=== PATIENT | male | born 1980 | race Caucasian/White ===

== ENCOUNTER 2020-10-11 05:51 | Inpatient (IN) | payer OTHER ==
[2020-10-11 06:32] LABS: EOS % 0.6 % (0-4.5); HEMATOCRIT 34.1 % (35.4-49); HEMOGLOBIN 11.4 GM/dL (11.7-16.9); LYMPH % 33.9 % (8-40); MCH 29.8 pg (25.7-33.7); MCHC 33.4 g/dl (32.0-35.9); MEAN CELL VOLUME 89.4 fl (80-96); MEAN PLT VOLUME 7.1 fl (7.5-11.1); MONO % 8.8 % (3.8-10.2); NEUT % 54.7 % (42.8-82.8); PLATELET COUNT 358 K/MM3 (134-434); RBC 3.82 M/mm3 (4.00-5.60); RDW 20.6 % (11.9-15.9); WHITE BLOOD COUNT 5.8 K/mm3 (4.0-10.0)
[2020-10-11 06:59] LABS: CHLORIDE 106 mmol/L (98-107); SODIUM 143 mmol/L (136-145)
[2020-10-11 07:01] LABS: CALCIUM 8.2 mg/dL (8.5-10.1)
[2020-10-11 07:02] LABS: ALBUMIN 3.6 g/dl (3.4-5.0); ANION GAP 9 MMOL/L (8-16); BLOOD UREA NITROGEN 6.3 mg/dL (7-18); CO2 28 mmol/L (21-32); GLUCOSE,RANDOM 146 mg/dL (74-106); LIPASE 190 U/L (73-393)
[2020-10-11 07:04] LABS: SGOT/AST 58 U/L (15-37); SGPT/ALT 43 U/L (13-61)
[2020-10-11 07:05] LABS: CREATININE 0.8 mg/dL (0.55-1.3)
[2020-10-11 07:06] LABS: BILIRUBIN,TOTAL 0.4 mg/dL (0.2-1); TOT PROT 7.7 g/dl (6.4-8.2)
[2020-10-11 07:07] LABS: ALK PHOS 176 U/L (45-117)
[2020-10-11 07:38] LABS: COCAINE, UR NEGATIVE ng/ml (CUTOFF=300); METHADONE, UR NEGATIVE ng/ml (CUTOFF=300); URINE BARBITURATES NEGATIVE ng/ml (CUTOFF=200)
[2020-10-11 07:39] LABS: OPIATES, URI NEGATIVE ng/ml (CUTOFF=300); PHENCYCLIDINE,URINE NEGATIVE ng/ml (CUTOFF=25); URINE AMPHETAMINES NEGATIVE ng/ml (CUTOFF=500)
[2020-10-11 08:29] LABS: PH,URINE 7.5 (5.0-8.0); URINE APPEARANCE CLEAR; URINE BILIRUBIN NEGATIVE (NEGATIVE); URINE COLOR YELLOW; URINE GLUCOSE (UA) NEGATIVE (NEGATIVE); URINE KETONE NEGATIVE (NEGATIVE); URINE LEUK ESTERASE NEGATIVE (NEGATIVE); URINE NITRITE NEGATIVE (NEGATIVE); URINE PROTEIN NEGATIVE (NEGATIVE); URINE UROBILINOGEN 0.2 mg/dL (0.2-1.0)
[2020-10-11 08:56] LABS: URINE BENZODIAZEPINES POSITIVE ng/ml (CUTOFF=200)
[2020-10-11] MEDS ORDERED: POTASSIUM CHLORIDE ORAL LIQUID 20 MEQ/15 ML PO ONE (08:58)
[2020-10-11] MEDS ORDERED: POTASSIUM CHLORIDE ORAL LIQUID 20 MEQ/15 ML ONE (09:05)
[2020-10-11 09:11] LABS: ANISOCYTOSIS 1+; MACROCYTOSIS 0; PLATELET ESTIMATE NORMAL
[2020-10-11] MEDS ORDERED: FAMOTIDINE 20 MG/50 ML IVPB 20 MG/50 ML MG IVPB ONE ×3 (09:31→15:10)
[2020-10-11] MEDS ORDERED: ONDANSETRON 4 MG/2 ML VIAL IVPUSH ONE (09:31)
[2020-10-11] MEDS ORDERED: ONDANSETRON 4 MG/2 ML VIAL ONE (09:38)
[2020-10-11] MEDS: SUCRALFATE 1 GM TABLET (FP) PO SCH ×2 (09:52→22:22)
[2020-10-11] MEDS ORDERED: CEFTRIAXONE 1,000 MG in DEXTROSE 5%-WATER - 50 ML IVPB ONE (12:16)
[2020-10-11] MEDS ORDERED: cefTRIAXone SODIUM 1 GM VIAL ONE (12:20)
[2020-10-11] MEDS ORDERED: ACETAMINOPHEN 1000 MG/100 ML BAG IVPB ONE (13:58)
[2020-10-11] MEDS ORDERED: ACETAMINOPHEN INJECTION 100 ML IVPB ONE (14:16)
[2020-10-11] MEDS ORDERED: KETOROLAC TROMETHAMINE 15 MG/ML VIAL IVPUSH ONE (14:18)
[2020-10-11] MEDS ORDERED: KETOROLAC TROMETHAMINE 15 MG/ML VIAL ONE (14:31)
[2020-10-11] MEDS ORDERED: LACTATED RINGERS SOLUTION 1000 ML INFUS.BAG IV ONE (14:48)
[2020-10-11] MEDS ORDERED: LORazepam 2 MG/ML SDV VIAL IVPUSH ONE (15:10)
[2020-10-11] MEDS ORDERED: FAMOTIDINE 20 MG TABLET ONE (15:55)
[2020-10-11] MEDS ORDERED: LIDOCAINE 5% TOPICAL PATCH ONE (16:42)
[2020-10-11] MEDS ORDERED: LIDOCAINE 5% TOPICAL PATCH TP ONE (16:42)
[2020-10-11] MEDS: D5-1/2NS+10 MEQ KCL - 10 MEQ/1,000 ML INFUS.BAG IV SCH (16:45)
[2020-10-11] MEDS ORDERED: LORazepam 1 MG TABLET ONE ×3 (16:46→22:11)
[2020-10-11] MEDS: LORazepam 1 MG TABLET PO SCH ×2 (16:46→22:22)
[2020-10-11] MEDS: AMPICILLIN NA/SULBACTAM NA 3 GM in SODIUM CHLORIDE 100 ML IVPB SCH (18:12)
[2020-10-11] MEDS ORDERED: ONDANSETRON *ODT* 4 MG TABLET ONE (20:05)
[2020-10-11] MEDS ORDERED: ACETAMINOPHEN 325 MG TABLET (FP) ONE (20:05)
[2020-10-11] MEDS: LORazepam 1 MG TABLET PO PRN (20:08)
[2020-10-11] MEDS: ACETAMINOPHEN 325 MG TABLET (FP) PO PRN (20:09)
[2020-10-11] MEDS: ONDANSETRON 4 MG/2 ML VIAL IVPUSH PRN (20:09)
[2020-10-11] MEDS ORDERED: SUCRALFATE 1 GM TABLET (FP) ONE (22:10)
[2020-10-11] MEDS: FAMOTIDINE 20 MG/50 ML IVPB 20 MG/50 ML MG IVPB SCH (22:22)
[2020-10-12] MEDS ORDERED: LORazepam 1 MG TABLET ONE (04:04)
[2020-10-12] MEDS: LORazepam 1 MG TABLET PO SCH ×4 (04:08→22:58)
[2020-10-12] MEDS ORDERED: ONDANSETRON 4 MG/2 ML VIAL ONE (04:13)
[2020-10-12] MEDS: ONDANSETRON 4 MG/2 ML VIAL IVPUSH PRN ×2 (04:18→17:40)
[2020-10-12] MEDS: AMPICILLIN NA/SULBACTAM NA 3 GM in SODIUM CHLORIDE 100 ML IVPB SCH ×4 (04:34→21:30)
[2020-10-12 07:40] LABS: BASO % 2.8 % (0-2.0); EOS % 0.9 % (0-4.5); HEMATOCRIT 34.5 % (35.4-49); HEMOGLOBIN 11.4 GM/dL (11.7-16.9); MCH 30.1 pg (25.7-33.7); MCHC 33.1 g/dl (32.0-35.9); MEAN CELL VOLUME 90.8 fl (80-96); MEAN PLT VOLUME 7.8 fl (7.5-11.1); MONO % 7.6 % (3.8-10.2); NEUT % 70.7 % (42.8-82.8); PLATELET COUNT 322 K/MM3 (134-434); WHITE BLOOD COUNT 5.9 K/mm3 (4.0-10.0)
[2020-10-12 08:00] LABS: ALBUMIN 3.7 g/dl (3.4-5.0); BLOOD UREA NITROGEN 6.4 mg/dL (7-18); CALCIUM 8.7 mg/dL (8.5-10.1); MAGNESIUM 1.7 mg/dL (1.8-2.4)
[2020-10-12 08:04] LABS: CREATININE 0.8 mg/dL (0.55-1.3)
[2020-10-12 08:05] LABS: BILIRUBIN,TOTAL 1.4 mg/dL (0.2-1)
[2020-10-12] MEDS ORDERED: MAGNESIUM OXIDE 400 MG TABLET (FP) PO ONE (08:28)
[2020-10-12] MEDS ORDERED: LORazepam 2 MG/ML SDV VIAL ONE (08:46)
[2020-10-12] MEDS: LORazepam 1 MG TABLET PO PRN (08:48)
[2020-10-12] MEDS ORDERED: TUBERCULIN PPD 5 TU/0.1ML SYRINGE (IN PATIENT USE ONLY) ID ONE (09:20)
[2020-10-12] MEDS: SUCRALFATE 1 GM TABLET (FP) PO SCH ×2 (09:22→21:48)
[2020-10-12] MEDS ORDERED: MAGNESIUM OXIDE 400 MG TABLET (FP) ONE (09:22)
[2020-10-12] MEDS ORDERED: SUCRALFATE 1 GM TABLET (FP) ONE (09:22)
[2020-10-12] MEDS: FOLIC ACID 1 MG TABLET (FP) PO SCH (09:28)
[2020-10-12] MEDS ORDERED: THIAMINE HCL 100 MG TABLET (FP) ONE (09:28)
[2020-10-12] MEDS ORDERED: FOLIC ACID 1 MG TABLET (FP) ONE (09:28)
[2020-10-12] MEDS ORDERED: FOLIC ACID INJECTION - 1 MG, THIAMINE HCL 100 MG, MULTIVIT INJECTION ADULT 10 ML in SOD... IVPB ONE (09:44)
[2020-10-12] MEDS ORDERED: morphine CARPU-JECT 4 MG/1 ML DISP.SYRIN IVPUSH PRN (09:45)
[2020-10-12] MEDS ORDERED: THIAMINE HCL 100 MG TABLET (FP) PO SCH (10:00)
[2020-10-12] MEDS: FAMOTIDINE 20 MG/50 ML IVPB 20 MG/50 ML MG IVPB SCH ×2 (11:13→21:48)
[2020-10-12] MEDS: D5-1/2NS+10 MEQ KCL - 10 MEQ/1,000 ML INFUS.BAG IV SCH ×2 (17:42→18:43)
[2020-10-13] MEDS: AMPICILLIN NA/SULBACTAM NA 3 GM in SODIUM CHLORIDE 100 ML IVPB SCH ×4 (02:20→17:20)
[2020-10-13] MEDS: LORazepam 1 MG TABLET PO SCH ×4 (04:58→22:35)
[2020-10-13 08:31] LABS: BASO % 2.8 % (0-2.0); EOS % 6.1 % (0-4.5); HEMATOCRIT 33.6 % (35.4-49); LYMPH % 21.2 % (8-40); MCHC 32.8 g/dl (32.0-35.9); MEAN CELL VOLUME 91.5 fl (80-96); MEAN PLT VOLUME 8.6 fl (7.5-11.1); MONO % 9.3 % (3.8-10.2); NEUT % 60.6 % (42.8-82.8); PLATELET COUNT 283 K/MM3 (134-434); RBC 3.67 M/mm3 (4.00-5.60); RDW 20.3 % (11.9-15.9); WHITE BLOOD COUNT 3.9 K/mm3 (4.0-10.0)
[2020-10-13 08:48] LABS: CALCIUM 8.7 mg/dL (8.5-10.1)
[2020-10-13 08:49] LABS: ALBUMIN 3.4 g/dl (3.4-5.0); MAGNESIUM 2.2 mg/dL (1.8-2.4)
[2020-10-13 08:52] LABS: BILIRUBIN,DIRECT 0.3 mg/dL (0.0-0.2); CREATININE 0.7 mg/dL (0.55-1.3); PHOSPHOROUS 2.8 mg/dL (2.5-4.9)
[2020-10-13 08:53] LABS: BILIRUBIN,TOTAL 0.9 mg/dL (0.2-1); TOT PROT 7.3 g/dl (6.4-8.2)
[2020-10-13] MEDS: SUCRALFATE 1 GM TABLET (FP) PO SCH ×2 (09:20→22:35)
[2020-10-13] MEDS: FOLIC ACID 1 MG TABLET (FP) PO SCH (09:21)
[2020-10-13] MEDS: FAMOTIDINE 20 MG/50 ML IVPB 20 MG/50 ML MG IVPB SCH ×2 (09:21→21:43)
[2020-10-13] MEDS: THIAMINE HCL 100 MG TABLET (FP) PO SCH (09:21)
[2020-10-13] MEDS: MULTIVITAMINS (DAILY MVI) TABLET (FP) PO SCH (09:21)
[2020-10-13] MEDS ORDERED: POTASSIUM CHLORIDE TABS 20 MEQ TABLET.ER (FP) PO ONE (11:22)
[2020-10-13] MEDS: D5-1/2NS+10 MEQ KCL - 10 MEQ/1,000 ML INFUS.BAG IV SCH (17:20)
[2020-10-13] MEDS: ENOXAPARIN NA (PORCINE) 40 MG/0.4 ML DISP.SYRIN SQ SCH (18:32)
[2020-10-13] MEDS: ONDANSETRON 4 MG/2 ML VIAL IVPUSH PRN (19:34)
[2020-10-14] MEDS ORDERED: LORazepam 0.5 MG TABLET PO PRN
[2020-10-14] MEDS ORDERED: LORazepam 2 MG/ML SDV VIAL IVPUSH PRN (00:22)
[2020-10-14] MEDS: AMPICILLIN NA/SULBACTAM NA 3 GM in SODIUM CHLORIDE 100 ML IVPB SCH ×2 (02:46→10:47)
[2020-10-14] MEDS: LORazepam 0.5 MG TABLET PO SCH ×3 (05:10→17:38)
[2020-10-14] MEDS: D5-1/2NS+10 MEQ KCL - 10 MEQ/1,000 ML INFUS.BAG IV SCH ×2 (05:12→19:42)
[2020-10-14 08:55] LABS: BASO % 3.2 % (0-2.0); EOS % 7.1 % (0-4.5); HEMATOCRIT 33.2 % (35.4-49); HEMOGLOBIN 10.9 GM/dL (11.7-16.9); LYMPH % 33.4 % (8-40); MCH 30.3 pg (25.7-33.7); MCHC 32.7 g/dl (32.0-35.9); MEAN CELL VOLUME 92.7 fl (80-96); MEAN PLT VOLUME 8.7 fl (7.5-11.1); NEUT % 44.3 % (42.8-82.8); PLATELET COUNT 248 K/MM3 (134-434); RBC 3.58 M/mm3 (4.00-5.60); RDW 20.1 % (11.9-15.9)
[2020-10-14 09:02] LABS: ALBUMIN 3.3 g/dl (3.4-5.0); CALCIUM 8.5 mg/dL (8.5-10.1)
[2020-10-14 09:05] LABS: CREATININE 0.8 mg/dL (0.55-1.3)
[2020-10-14 09:06] LABS: PHOSPHOROUS 3.4 mg/dL (2.5-4.9)
[2020-10-14 09:07] LABS: BILIRUBIN,TOTAL 0.8 mg/dL (0.2-1); TOT PROT 7.3 g/dl (6.4-8.2)
[2020-10-14] MEDS: CYANOCOBALAMIN (VITAMIN B-12) 100 MCG TABLET PO SCH (10:45)
[2020-10-14] MEDS: SUCRALFATE 1 GM TABLET (FP) PO SCH ×2 (10:45→21:46)
[2020-10-14] MEDS: THIAMINE HCL 100 MG TABLET (FP) PO SCH (10:45)
[2020-10-14] MEDS: ENOXAPARIN NA (PORCINE) 40 MG/0.4 ML DISP.SYRIN SQ SCH (10:46)
[2020-10-14] MEDS: FOLIC ACID 1 MG TABLET (FP) PO SCH (10:46)
[2020-10-14] MEDS: MULTIVITAMINS (DAILY MVI) TABLET (FP) PO SCH (12:54)
[2020-10-14] MEDS: FAMOTIDINE 20 MG/50 ML IVPB 20 MG/50 ML MG IVPB SCH ×2 (12:55→21:38)
[2020-10-14] MEDS: AMOX TR/POT CLAV 875MG/125MG TABLETS (FP) PO SCH (17:38)
[2020-10-14] MEDS: ONDANSETRON 4 MG/2 ML VIAL IVPUSH PRN (19:50)
[2020-10-15] MEDS: LORazepam 0.5 MG TABLET PO SCH (01:15)
[2020-10-15] MEDS ORDERED: LORazepam 0.5 MG TABLET PO ONE (05:00)
[2020-10-15 09:47] LABS: HIV INTERPRETATION NEGATIVE (NEGATIVE)
[2020-10-15] MEDS: MULTIVITAMINS (DAILY MVI) TABLET (FP) PO SCH (10:15)
[2020-10-15] MEDS: FOLIC ACID 1 MG TABLET (FP) PO SCH (10:15)
[2020-10-15] MEDS: CYANOCOBALAMIN (VITAMIN B-12) 100 MCG TABLET PO SCH (10:15)
[2020-10-15] MEDS: FAMOTIDINE 20 MG/50 ML IVPB 20 MG/50 ML MG IVPB SCH ×2 (10:15→21:09)
[2020-10-15] MEDS: ENOXAPARIN NA (PORCINE) 40 MG/0.4 ML DISP.SYRIN SQ SCH (10:15)
[2020-10-15] MEDS: THIAMINE HCL 100 MG TABLET (FP) PO SCH (10:15)
[2020-10-15] MEDS: SUCRALFATE 1 GM TABLET (FP) PO SCH ×2 (10:15→21:09)
[2020-10-15] MEDS: AMOX TR/POT CLAV 875MG/125MG TABLETS (FP) PO SCH ×2 (10:15→17:49)
[2020-10-15] MEDS: ACETAMINOPHEN 325 MG TABLET (FP) PO PRN (21:09)
[2020-10-16] MEDS: ACETAMINOPHEN 325 MG TABLET (FP) PO PRN (06:36)
[2020-10-16 09:09] LABS: BASO % 2.7 % (0-2.0); EOS % 5.4 % (0-4.5); HEMATOCRIT 36.5 % (35.4-49); HEMOGLOBIN 11.7 GM/dL (11.7-16.9); LYMPH % 26.2 % (8-40); MCH 29.8 pg (25.7-33.7); MEAN CELL VOLUME 93.3 fl (80-96); MONO % 14.7 % (3.8-10.2); PLATELET COUNT 248 K/MM3 (134-434); RBC 3.91 M/mm3 (4.00-5.60); RDW 20.4 % (11.9-15.9); WHITE BLOOD COUNT 4.3 K/mm3 (4.0-10.0)
[2020-10-16 09:26] LABS: CALCIUM 8.9 mg/dL (8.5-10.1)
[2020-10-16 09:27] LABS: ALBUMIN 3.5 g/dl (3.4-5.0); BLOOD UREA NITROGEN 6.1 mg/dL (7-18); MAGNESIUM 2.3 mg/dL (1.8-2.4)
[2020-10-16 09:30] LABS: CREATININE 0.9 mg/dL (0.55-1.3); PHOSPHOROUS 4.2 mg/dL (2.5-4.9)
[2020-10-16 09:32] LABS: BILIRUBIN,TOTAL 0.6 mg/dL (0.2-1); TOT PROT 7.6 g/dl (6.4-8.2)
[2020-10-16] MEDS: FOLIC ACID 1 MG TABLET (FP) PO SCH (10:04)
[2020-10-16] MEDS: THIAMINE HCL 100 MG TABLET (FP) PO SCH (10:04)
[2020-10-16] MEDS: FAMOTIDINE 20 MG/50 ML IVPB 20 MG/50 ML MG IVPB SCH ×2 (10:04→22:18)
[2020-10-16] MEDS: AMOX TR/POT CLAV 875MG/125MG TABLETS (FP) PO SCH (10:04)
[2020-10-16] MEDS: ENOXAPARIN NA (PORCINE) 40 MG/0.4 ML DISP.SYRIN SQ SCH (10:04)
[2020-10-16] MEDS: SUCRALFATE 1 GM TABLET (FP) PO SCH ×2 (10:05→22:17)
[2020-10-16] MEDS: MULTIVITAMINS (DAILY MVI) TABLET (FP) PO SCH (10:05)
[2020-10-16] MEDS: CYANOCOBALAMIN (VITAMIN B-12) 100 MCG TABLET PO SCH (10:06)
[2020-10-17] MEDS: MELATONIN 5 MG TABLETS PO PRN ×2 (00:45→21:56)
[2020-10-17 08:37] LABS: HEMATOCRIT 35.1 % (35.4-49); HEMOGLOBIN 11.4 GM/dL (11.7-16.9); MCH 30.4 pg (25.7-33.7); MCHC 32.5 g/dl (32.0-35.9); MEAN CELL VOLUME 93.4 fl (80-96); PLATELET COUNT 210 K/MM3 (134-434); RBC 3.76 M/mm3 (4.00-5.60); RDW 21.1 % (11.9-15.9); WHITE BLOOD COUNT 5.2 K/mm3 (4.0-10.0)
[2020-10-17 08:52] LABS: ALBUMIN 3.6 g/dl (3.4-5.0)
[2020-10-17 08:53] LABS: BLOOD UREA NITROGEN 9.6 mg/dL (7-18)
[2020-10-17 08:54] LABS: CALCIUM 8.8 mg/dL (8.5-10.1); MAGNESIUM 2.2 mg/dL (1.8-2.4)
[2020-10-17 08:58] LABS: BILIRUBIN,TOTAL 0.6 mg/dL (0.2-1); CREATININE 0.9 mg/dL (0.55-1.3); PHOSPHOROUS 3.9 mg/dL (2.5-4.9); TOT PROT 7.5 g/dl (6.4-8.2)
[2020-10-17] MEDS: THIAMINE HCL 100 MG TABLET (FP) PO SCH (09:13)
[2020-10-17] MEDS: FOLIC ACID 1 MG TABLET (FP) PO SCH (09:13)
[2020-10-17] MEDS: MULTIVITAMINS (DAILY MVI) TABLET (FP) PO SCH (09:13)
[2020-10-17] MEDS: ENOXAPARIN NA (PORCINE) 40 MG/0.4 ML DISP.SYRIN SQ SCH (09:13)
[2020-10-17] MEDS: SUCRALFATE 1 GM TABLET (FP) PO SCH ×2 (09:55→21:56)
[2020-10-17] MEDS: CYANOCOBALAMIN (VITAMIN B-12) 100 MCG TABLET PO SCH (09:55)
[2020-10-17] MEDS: FAMOTIDINE 20 MG/50 ML IVPB 20 MG/50 ML MG IVPB SCH ×2 (10:10→21:56)
[2020-10-17] MEDS: ACETAMINOPHEN 325 MG TABLET (FP) PO PRN (22:51)
[2020-10-18] MEDS: ENOXAPARIN NA (PORCINE) 40 MG/0.4 ML DISP.SYRIN SQ SCH (10:49)
[2020-10-18] MEDS: THIAMINE HCL 100 MG TABLET (FP) PO SCH (10:49)
[2020-10-18] MEDS: SUCRALFATE 1 GM TABLET (FP) PO SCH ×2 (10:49→21:50)
[2020-10-18] MEDS: CYANOCOBALAMIN (VITAMIN B-12) 100 MCG TABLET PO SCH (10:49)
[2020-10-18] MEDS: FOLIC ACID 1 MG TABLET (FP) PO SCH (10:50)
[2020-10-18] MEDS: FAMOTIDINE 20 MG/50 ML IVPB 20 MG/50 ML MG IVPB SCH ×2 (10:50→21:50)
[2020-10-18] MEDS: MULTIVITAMINS (DAILY MVI) TABLET (FP) PO SCH (10:50)
[2020-10-18] MEDS: MELATONIN 5 MG TABLETS PO PRN (21:56)
[2020-10-19] MEDS: FAMOTIDINE 20 MG/50 ML IVPB 20 MG/50 ML MG IVPB SCH (09:48)
[2020-10-19] MEDS: FOLIC ACID 1 MG TABLET (FP) PO SCH (09:48)
[2020-10-19] MEDS: THIAMINE HCL 100 MG TABLET (FP) PO SCH (09:48)
[2020-10-19] MEDS: SUCRALFATE 1 GM TABLET (FP) PO SCH ×2 (09:48→22:25)
[2020-10-19] MEDS: ENOXAPARIN NA (PORCINE) 40 MG/0.4 ML DISP.SYRIN SQ SCH (09:48)
[2020-10-19] MEDS: MULTIVITAMINS (DAILY MVI) TABLET (FP) PO SCH (09:48)
[2020-10-19] MEDS: CYANOCOBALAMIN (VITAMIN B-12) 100 MCG TABLET PO SCH (09:49)
[2020-10-19 14:11] VITALS: BMI 23.5
[2020-10-19] MEDS: FAMOTIDINE 20 MG TABLET PO SCH (21:53)
[2020-10-19] MEDS: MELATONIN 5 MG TABLETS PO PRN (21:53)
[2020-10-20 08:51] LABS: HEMATOCRIT 36.5 % (35.4-49); HEMOGLOBIN 11.9 GM/dL (11.7-16.9); MCH 30.2 pg (25.7-33.7); MCHC 32.6 g/dl (32.0-35.9); MEAN CELL VOLUME 92.7 fl (80-96); MEAN PLT VOLUME 8.7 fl (7.5-11.1); PLATELET COUNT 262 K/MM3 (134-434); RBC 3.94 M/mm3 (4.00-5.60); RDW 20.8 % (11.9-15.9); WHITE BLOOD COUNT 5.4 K/mm3 (4.0-10.0)
[2020-10-20] MEDS: FAMOTIDINE 20 MG TABLET PO SCH (09:08)
[2020-10-20] MEDS: ENOXAPARIN NA (PORCINE) 40 MG/0.4 ML DISP.SYRIN SQ SCH (09:08)
[2020-10-20] MEDS: MULTIVITAMINS (DAILY MVI) TABLET (FP) PO SCH (09:08)
[2020-10-20] MEDS: FOLIC ACID 1 MG TABLET (FP) PO SCH (09:08)
[2020-10-20] MEDS: THIAMINE HCL 100 MG TABLET (FP) PO SCH (09:08)
[2020-10-20] MEDS: CYANOCOBALAMIN (VITAMIN B-12) 100 MCG TABLET PO SCH (09:19)
[2020-10-20] MEDS: SUCRALFATE 1 GM TABLET (FP) PO SCH (09:19)
[2020-10-20 09:58] LABS: ALBUMIN 3.5 g/dl (3.4-5.0); BILIRUBIN,TOTAL 0.7 mg/dL (0.2-1); BLOOD UREA NITROGEN 11.8 mg/dL (7-18)
[2020-10-20 09:59] LABS: CALCIUM 9.1 mg/dL (8.5-10.1); MAGNESIUM 2.3 mg/dL (1.8-2.4)
[2020-10-20 10:02] LABS: CREATININE 0.8 mg/dL (0.55-1.3)
[2020-10-20 10:07] LABS: PHOSPHOROUS 4.4 mg/dL (2.5-4.9)
[2020-10-20 10:08] LABS: TOT PROT 7.5 g/dl (6.4-8.2)
[2020-10-20 14:10] VITALS: BP 121/74; PULSE 76; TEMP 98.7
== END 2020-10-20 18:29 | disposition home or self-care (01) | DRG 244 ==
LOC: JER 05:51 → JERBED 15:19 → J6WEST-2 10-12 10:15
PROVIDERS: ADMIT Internal Medicine; ATTEND Internal Medicine
PROC: HZ2ZZZZ Detoxification Services for Substance Abuse Treatment (ICD-10-PCS; principal; 2020-10-11)
DX: K57.32 Diverticulitis of large intestine without perforation or abscess without bleeding (principal); F10.229 Alcohol dependence with intoxication, unspecified; Y90.8 Blood alcohol level of 240 mg/100 ml or more; F10.239 Alcohol dependence with withdrawal, unspecified; K76.0 Fatty (change of) liver, not elsewhere classified; I25.10 Atherosclerotic heart disease of native coronary artery without angina pectoris; J84.10 Pulmonary fibrosis, unspecified; S22.080A Wedge compression fracture of T11-T12 vertebra, initial encounter for closed fracture; D64.9 Anemia, unspecified; Z22.7 Latent tuberculosis
CPT/HCPCS: 36415; 70450-TC; 71046-TC-FY; 71250-TC; 72125-TC; 74177-TC; 80053; 80074; 80307; 81003; 82164; 82248; 82272; 82550; 82553; 82728; 83540; 83550; 83615; 83690; 83735; 84100; 84484; 85025; 85027; 86480; 87086; 87116; 87206; 87389; 93005; 93010; 99285-25; C9803; J0131; Q9967; U0003

== ENCOUNTER 2021-04-30 13:31 | Emergency (ER) | payer OTHER ==
[2021-04-30 13:44] VITALS: BP 124/87; PULSE 98; TEMP 97.9; BMI 22.7
== END 2021-04-30 15:43 | disposition left against medical advice (07) ==
LOC: JER 13:31
DX: R10.9 Unspecified abdominal pain (principal)
CPT/HCPCS: 99281-25

== ENCOUNTER 2021-05-01 23:51 | Emergency (ER) | payer OTHER ==
[2021-05-02] MEDS ORDERED: SODIUM CHLORIDE 0.9% 500 ML INFUS.BAG IV ONE ×2 (00:49→05:18)
[2021-05-02] MEDS ORDERED: FAMOTIDINE 20 MG/50 ML IVPB 20 MG/50 ML MG IVPB ONE ×2 (01:19→01:33)
[2021-05-02] MEDS ORDERED: ONDANSETRON 4 MG/2 ML VIAL IVPUSH ONE (01:19)
[2021-05-02] MEDS ORDERED: ACETAMINOPHEN 1000 MG/100 ML VIAL (NON FORMULARY) IVPB ONE (01:22)
[2021-05-02] MEDS ORDERED: ONDANSETRON 4 MG/2 ML VIAL ONE (01:33)
[2021-05-02] MEDS ORDERED: morphine CARPU-JECT 4 MG/1 ML DISP.SYRIN IVPUSH ONE (01:36)
[2021-05-02] MEDS ORDERED: morphine SULFATE 4 MG/ML VIAL ONE ×2 (01:39→05:22)
[2021-05-02 01:43] LABS: BASO % 2.2 % (0-2.0); EOS % 4.5 % (0-4.5); HEMATOCRIT 44.6 % (35.4-49); HEMOGLOBIN 15.1 GM/dL (11.7-16.9); MCH 31.9 pg (25.7-33.7); MCHC 33.9 g/dl (32.0-35.9); MEAN CELL VOLUME 94.1 fl (80-96); MEAN PLT VOLUME 7.5 fl (7.5-11.1); MONO % 9.3 % (3.8-10.2); PLATELET COUNT 268 10^3/uL (134-434); RBC 4.74 M/mm3 (4.00-5.60); RDW 15.5 % (11.9-15.9); WHITE BLOOD COUNT 3.8 K/mm3 (4.0-10.0)
[2021-05-02 01:50] LABS: INR 0.88 (0.83-1.09); PROTHROMBIN TIME (PATIENT) 10.9 SEC (9.7-13.0)
[2021-05-02 01:53] LABS: ACTIVATED PTT 28.9 SECONDS (25.2-36.5)
[2021-05-02 02:01] LABS: CALCIUM 8.2 mg/dL (8.5-10.1)
[2021-05-02 02:02] LABS: ALBUMIN 3.8 g/dl (3.4-5.0); BLOOD UREA NITROGEN 10.7 mg/dL (7-18)
[2021-05-02 02:05] LABS: CREATININE 0.9 mg/dL (0.55-1.3)
[2021-05-02 02:06] LABS: BILIRUBIN,TOTAL 0.4 mg/dL (0.2-1); TOT PROT 8.8 g/dl (6.4-8.2)
[2021-05-02 02:10] LABS: LACTIC ACID 2.7 mmol/L (0.4-2.0)
[2021-05-02 02:46] VITALS: BMI 24.3
[2021-05-02] MEDS ORDERED: KETOROLAC TROMETHAMINE 30 MG/1 ML VIAL IVPUSH ONE (05:18)
[2021-05-02] MEDS ORDERED: morphine CARPU-JECT 2 MG/1 ML DISP.SYRIN IVPUSH ONE (05:21)
[2021-05-02] MEDS ORDERED: LORazepam 2 MG TABLET PO ONE (07:02)
[2021-05-02] MEDS ORDERED: chlordiazePOXIDE HCL 25 MG CAPSULE PO ONE ×3 (07:03→12:16)
[2021-05-02] MEDS ORDERED: LORazepam 2 MG/ML SDV VIAL IVPUSH ONE (07:04)
[2021-05-02] MEDS ORDERED: LORazepam 2 MG/ML SDV VIAL ONE (07:28)
[2021-05-02] MEDS ORDERED: chlordiazePOXIDE HCL 10 MG CAPSULE ONE ×2 (07:29→12:27)
[2021-05-02 09:56] LABS: LACTIC ACID 3.3 mmol/L (0.4-2.0)
[2021-05-02 13:31] VITALS: BP 133/85; PULSE 108; TEMP 97.8
== END 2021-05-02 13:31 | disposition home or self-care (01) ==
LOC: JER 23:51
PROC: 3E033NZ Introduction of Analgesics, Hypnotics, Sedatives into Peripheral Vein, Percutaneous Approach (ICD-10-PCS; principal; 2021-05-01)
PROC: 3E033GC Introduction of Other Therapeutic Substance into Peripheral Vein, Percutaneous Approach (ICD-10-PCS; 2021-05-01)
PROC: 3E033GC Introduction of Other Therapeutic Substance into Peripheral Vein, Percutaneous Approach (ICD-10-PCS; 2021-05-01)
DX: F10.920 Alcohol use, unspecified with intoxication, uncomplicated (principal)
CPT/HCPCS: 36415; 71045-TC-FY; 74176-TC; 76705-TC; 80053; 83605; 83690; 85025; 85610; 85730; 86850; 86900; 86901; 93005; 93010; 99285-25

== ENCOUNTER 2021-11-01 19:31 | Emergency (ER) | payer OTHER ==
[2021-11-01 20:05] VITALS: BMI 26.9
[2021-11-01] MEDS ORDERED: LACTATED RINGERS SOLUTION 1000 ML INFUS.BAG IV ONE (21:27)
[2021-11-01] MEDS ORDERED: ONDANSETRON 4 MG/2 ML VIAL IVPUSH ONE (22:06)
[2021-11-01] MEDS ORDERED: morphine CARPU-JECT 4 MG/1 ML DISP.SYRIN IVPUSH ONE (22:07)
[2021-11-01 22:11] LABS: BASO % 2.3 % (0-2.0); EOS % 2.7 % (0-4.5); HEMATOCRIT 41.1 % (35.4-49); HEMOGLOBIN 13.4 GM/dL (11.7-16.9); LYMPH % 49.3 % (8-40); MCH 31.5 pg (25.7-33.7); MCHC 32.7 g/dl (32.0-35.9); MEAN CELL VOLUME 96.5 fl (80-96); MEAN PLT VOLUME 7.2 fl (7.5-11.1); MONO % 5.5 % (3.8-10.2); NEUT % 40.2 % (42.8-82.8); PLATELET COUNT 268 10^3/uL (134-434); RBC 4.26 M/mm3 (4.00-5.60); RDW 15.8 % (11.9-15.9)
[2021-11-01] MEDS ORDERED: ONDANSETRON 4 MG/2 ML VIAL ONE (22:25)
[2021-11-01 22:35] LABS: BLOOD UREA NITROGEN 8.3 mg/dL (7-18); CALCIUM 8.6 mg/dL (8.5-10.1); MAGNESIUM 2.3 mg/dL (1.8-2.4)
[2021-11-01 22:38] LABS: CREATININE 0.7 mg/dL (0.55-1.3); PHOSPHOROUS 3.8 mg/dL (2.5-4.9)
[2021-11-01 22:40] LABS: BILIRUBIN,TOTAL 0.6 mg/dL (0.2-1); TOT PROT 8.1 g/dl (6.4-8.2)
[2021-11-02] MEDS ORDERED: ONDANSETRON 4 MG/2 ML VIAL IVPUSH ONE ×2 (01:13→08:30)
[2021-11-02] MEDS ORDERED: ONDANSETRON 4 MG/2 ML VIAL ONE ×2 (01:29→08:40)
[2021-11-02] MEDS ORDERED: METOCLOPRAMIDE HCL INJECTION 10 MG/2 ML VIAL IVPB ONE (02:30)
[2021-11-02] MEDS ORDERED: LACTATED RINGERS SOLUTION 1000 ML INFUS.BAG IV ONE ×2 (02:30→08:31)
[2021-11-02] MEDS ORDERED: METOCLOPRAMIDE HCL INJECTION 10 MG/2 ML VIAL ONE (02:47)
[2021-11-02] MEDS ORDERED: LORazepam 2 MG/ML SDV VIAL IVPUSH ONE ×2 (02:55→03:41)
[2021-11-02] MEDS ORDERED: ACETAMINOPHEN 500 MG TABLET (FP) PO ONE (08:30)
[2021-11-02] MEDS ORDERED: MAG HYDROX/AL HYDROX/SIMETH 30 ML UNIT-DOSE CUP PO ONE (08:30)
[2021-11-02] MEDS ORDERED: FAMOTIDINE 20 MG/50 ML IVPB 20 MG/50 ML MG IVPB ONE ×2 (08:30→08:40)
[2021-11-02] MEDS ORDERED: chlordiazePOXIDE HCL 25 MG CAPSULE PO ONE (08:30)
[2021-11-02] MEDS ORDERED: ACETAMINOPHEN 325 MG TABLET (FP) ONE (08:39)
[2021-11-02] MEDS ORDERED: MAG HYDROX/AL HYDROX/SIMETH 30 ML UNIT-DOSE CUP ONE (08:40)
[2021-11-02] MEDS ORDERED: chlordiazePOXIDE HCL 25 MG CAPSULE ONE (08:40)
[2021-11-02 08:42] LABS: INR 1.1 (0.83-1.09); PROTHROMBIN TIME (PATIENT) 12.7 SEC (9.7-13.0)
[2021-11-02 08:53] VITALS: TEMP 98.6
[2021-11-02 11:06] VITALS: BP 135/82; PULSE 89
== END 2021-11-02 11:08 | disposition home or self-care (01) ==
LOC: JER 19:31 → UNDOADMOB 11-02 03:42 → INTOOBSV 11-02 03:42 → JERBED 11-02 03:42 → JER 11-02 11:08
PROC: 3E033GC Introduction of Other Therapeutic Substance into Peripheral Vein, Percutaneous Approach (ICD-10-PCS; principal; 2021-11-01)
PROC: 3E033NZ Introduction of Analgesics, Hypnotics, Sedatives into Peripheral Vein, Percutaneous Approach (ICD-10-PCS; 2021-11-01)
PROC: 3E033NZ Introduction of Analgesics, Hypnotics, Sedatives into Peripheral Vein, Percutaneous Approach (ICD-10-PCS; 2021-11-01)
PROC: 3E033NZ Introduction of Analgesics, Hypnotics, Sedatives into Peripheral Vein, Percutaneous Approach (ICD-10-PCS; 2021-11-01)
PROC: 3E033GC Introduction of Other Therapeutic Substance into Peripheral Vein, Percutaneous Approach (ICD-10-PCS; 2021-11-01)
PROC: 3E033GC Introduction of Other Therapeutic Substance into Peripheral Vein, Percutaneous Approach (ICD-10-PCS; 2021-11-01)
PROC: 3E033GC Introduction of Other Therapeutic Substance into Peripheral Vein, Percutaneous Approach (ICD-10-PCS; 2021-11-01)
DX: K29.20 Alcoholic gastritis without bleeding (principal)
CPT/HCPCS: 36415; 70450-TC; 74177-TC; 76705-TC; 80053; 80307; 83690; 83735; 84100; 85025; 85610; 93005; 93010; 99285-25; C9803; U0003; U0005

== ENCOUNTER 2021-11-02 11:42 | Inpatient (IN) | payer OTHER ==
[2021-11-02] MEDS ORDERED: ACETAMINOPHEN 325 MG TABLET (FP) PO PRN (11:57)
[2021-11-02] MEDS ORDERED: IBUPROFEN 400 MG TABLET (FP) PO PRN (11:57)
[2021-11-02] MEDS ORDERED: MAGNESIUM CITRATE 300 ML BOTTLE PO PRN (11:57)
[2021-11-02] MEDS ORDERED: MAG HYDROX/AL HYDROX/SIMETH 30 ML UNIT-DOSE CUP PO PRN (11:57)
[2021-11-02] MEDS ORDERED: BISMUTH SUBSALICYLATE 262 MG/15 ML BTL PO PRN (11:57)
[2021-11-02] MEDS ORDERED: MAGNESIUM HYDROX 2400MG/30ML ORAL SUSPENSION 30 ML CUP PO PRN (11:57)
[2021-11-02] MEDS ORDERED: MENTHOL/PHENOL 1 EACH UD MM PRN (11:57)
[2021-11-02 12:01] VITALS: BMI 23.5
[2021-11-02] MEDS: LORazepam 2 MG TABLET PO SCH ×3 (13:02→22:42)
[2021-11-02] MEDS: PRENATAL VITAMINS W/ FOLIC ACID TABLET (FP) PO SCH (13:03)
[2021-11-02] MEDS: hydrOXYzine PAMOATE 25 MG CAPSULE (FP) PO SCH ×3 (13:54→22:43)
[2021-11-02] MEDS: LORazepam 1 MG TABLET PO PRN (15:56)
[2021-11-02] MEDS: ONDANSETRON *ODT* 4 MG TABLET SL PRN (16:59)
[2021-11-02] MEDS: SUCRALFATE 1 GM TABLET (FP) PO SCH (22:43)
[2021-11-02] MEDS: THIAMINE HCL 100 MG TABLET (FP) PO SCH (22:43)
[2021-11-02] MEDS: MELATONIN 5 MG TABLETS PO SCH (22:44)
[2021-11-03] MEDS: LORazepam 2 MG TABLET PO SCH ×4 (06:25→22:39)
[2021-11-03] MEDS: hydrOXYzine PAMOATE 25 MG CAPSULE (FP) PO SCH ×5 (06:25→22:39)
[2021-11-03] MEDS ORDERED: cloNIDine HCL 0.1 MG TABLET PO PRN (09:55)
[2021-11-03] MEDS: SUCRALFATE 1 GM TABLET (FP) PO SCH ×2 (10:05→22:39)
[2021-11-03] MEDS: PRENATAL VITAMINS W/ FOLIC ACID TABLET (FP) PO SCH (10:05)
[2021-11-03] MEDS: PANTOPRAZOLE 40 MG TABLET PO SCH (10:05)
[2021-11-03] MEDS: ONDANSETRON *ODT* 4 MG TABLET SL PRN ×2 (10:07→17:23)
[2021-11-03 10:40] LABS: HEMATOCRIT 35.5 % (35.4-49); HEMOGLOBIN 11.5 GM/dL (11.7-16.9); MCH 31.6 pg (25.7-33.7); MCHC 32.5 g/dl (32.0-35.9); MEAN CELL VOLUME 97.3 fl (80-96); MEAN PLT VOLUME 8.6 fl (7.5-11.1); PLATELET COUNT 190 10^3/uL (134-434); RBC 3.65 M/mm3 (4.00-5.60); RDW 15.3 % (11.9-15.9); WHITE BLOOD COUNT 4.1 K/mm3 (4.0-10.0)
[2021-11-03 10:47] LABS: CALCIUM 9.1 mg/dL (8.5-10.1)
[2021-11-03 10:48] LABS: ALBUMIN 3.5 g/dl (3.4-5.0)
[2021-11-03 10:51] LABS: CREATININE 0.7 mg/dL (0.55-1.3)
[2021-11-03 10:52] LABS: BILIRUBIN,TOTAL 1.4 mg/dL (0.2-1)
[2021-11-03 10:53] LABS: TOT PROT 6.9 g/dl (6.4-8.2)
[2021-11-03] MEDS: METHOCARBAMOL 500 MG TABLET PO PRN (22:39)
[2021-11-03] MEDS: THIAMINE HCL 100 MG TABLET (FP) PO SCH (22:39)
[2021-11-03] MEDS: MELATONIN 5 MG TABLETS PO SCH (22:40)
[2021-11-04] MEDS: hydrOXYzine PAMOATE 25 MG CAPSULE (FP) PO SCH ×5 (05:36→22:05)
[2021-11-04] MEDS: LORazepam 1 MG TABLET PO SCH ×4 (05:37→22:05)
[2021-11-04] MEDS: LORazepam 1 MG TABLET PO PRN (09:04)
[2021-11-04] MEDS: SUCRALFATE 1 GM TABLET (FP) PO SCH ×2 (10:15→22:05)
[2021-11-04] MEDS: PRENATAL VITAMINS W/ FOLIC ACID TABLET (FP) PO SCH (10:15)
[2021-11-04] MEDS: PANTOPRAZOLE 40 MG TABLET PO SCH (10:15)
[2021-11-04] MEDS: POTASSIUM CHLORIDE TABS 20 MEQ TABLET.ER (FP) PO ONE ×2 (13:28→13:36)
[2021-11-04] MEDS: POTASSIUM CHLORIDE TABS 20 MEQ TABLET.ER (FP) PO SCH (22:05)
[2021-11-04] MEDS: MELATONIN 5 MG TABLETS PO SCH (22:05)
[2021-11-04] MEDS: THIAMINE HCL 100 MG TABLET (FP) PO SCH (22:05)
[2021-11-04] MEDS: ONDANSETRON *ODT* 4 MG TABLET SL PRN (22:39)
[2021-11-05] MEDS: LORazepam 0.5 MG TABLET PO PRN ×2 (01:09→15:38)
[2021-11-05] MEDS: hydrOXYzine PAMOATE 25 MG CAPSULE (FP) PO SCH ×5 (05:59→22:11)
[2021-11-05] MEDS: LORazepam 0.5 MG TABLET PO SCH ×4 (06:00→22:12)
[2021-11-05] MEDS: SUCRALFATE 1 GM TABLET (FP) PO SCH ×2 (10:11→22:11)
[2021-11-05] MEDS: PRENATAL VITAMINS W/ FOLIC ACID TABLET (FP) PO SCH (10:11)
[2021-11-05] MEDS: POTASSIUM CHLORIDE TABS 20 MEQ TABLET.ER (FP) PO SCH ×2 (10:11→22:11)
[2021-11-05] MEDS: PANTOPRAZOLE 40 MG TABLET PO SCH (10:11)
[2021-11-05] MEDS: ACETAMINOPHEN 325 MG TABLET (FP) PO PRN ×2 (13:20→22:13)
[2021-11-05] MEDS ORDERED: TRIMETHOBENZAMIDE HCL 200MG/2ML INJ IM ONE (14:35)
[2021-11-05] MEDS: METHOCARBAMOL 500 MG TABLET PO PRN (17:42)
[2021-11-05] MEDS: THIAMINE HCL 100 MG TABLET (FP) PO SCH (22:11)
[2021-11-05] MEDS: MELATONIN 5 MG TABLETS PO SCH (22:11)
[2021-11-06] MEDS ORDERED: LORazepam 0.5 MG TABLET PO ONE (05:00)
[2021-11-06] MEDS: hydrOXYzine PAMOATE 25 MG CAPSULE (FP) PO SCH ×5 (06:42→22:17)
[2021-11-06] MEDS: PRENATAL VITAMINS W/ FOLIC ACID TABLET (FP) PO SCH (10:54)
[2021-11-06] MEDS: METHOCARBAMOL 500 MG TABLET PO PRN ×2 (10:54→22:18)
[2021-11-06] MEDS: PANTOPRAZOLE 40 MG TABLET PO SCH (10:54)
[2021-11-06] MEDS: SUCRALFATE 1 GM TABLET (FP) PO SCH ×2 (10:55→22:17)
[2021-11-06] MEDS: THIAMINE HCL 100 MG TABLET (FP) PO SCH (22:17)
[2021-11-06] MEDS: MELATONIN 5 MG TABLETS PO SCH (22:17)
[2021-11-06] MEDS: ACETAMINOPHEN 325 MG TABLET (FP) PO PRN (22:19)
[2021-11-07] MEDS: hydrOXYzine PAMOATE 25 MG CAPSULE (FP) PO SCH ×3 (06:45→13:23)
[2021-11-07] MEDS: PRENATAL VITAMINS W/ FOLIC ACID TABLET (FP) PO SCH (10:35)
[2021-11-07] MEDS: PANTOPRAZOLE 40 MG TABLET PO SCH (10:35)
[2021-11-07] MEDS: SUCRALFATE 1 GM TABLET (FP) PO SCH (10:35)
[2021-11-07 13:17] VITALS: BP 116/80; PULSE 87; TEMP 97.1
== END 2021-11-07 14:55 | disposition home or self-care (01) | DRG 775 ==
LOC: YASAS 11:42 → Y3N 12:21
PROVIDERS: ADMIT Allergy & Immunology; ATTEND Allergy & Immunology
PROC: HZ2ZZZZ Detoxification Services for Substance Abuse Treatment (ICD-10-PCS; principal; 2021-11-02)
DX: F10.230 Alcohol dependence with withdrawal, uncomplicated (principal); D64.9 Anemia, unspecified; E87.6 Hypokalemia; R94.5 Abnormal results of liver function studies; Z87.891 Personal history of nicotine dependence
CPT/HCPCS: 36415; 70450-TC; 74177-TC; 76705-TC; 80053; 80307; 83690; 83735; 84100; 85025; 85027; 85610; 86780; 93005; 93010; 99285-25; C9803; J0735; Q0162; U0003; U0005